=== PATIENT | female | born 1970 | race Asian ===

== ENCOUNTER 2016-03-21 12:52 | Outpatient (CLI) | payer OTHER | END 2016-03-21 20:13 | disposition home or self-care (01) | LOC: MAMMO 12:52 | DX: Z12.31 Encounter for screening mammogram for malignant neoplasm of breast (principal) | CPT/HCPCS: G0202-TC ==

== ENCOUNTER → 2020-04-25 | Outpatient (CLI) | payer BC, OTHER | LOC: INF 08:30 | PROVIDERS: ATTEND Internal Medicine | DX: Z23 Encounter for immunization (principal) | CPT/HCPCS: 96372 ==

== ENCOUNTER 2020-05-19 12:36 | Outpatient (CLI) | payer BC, OTHER | END 2020-05-19 23:59 | disposition home or self-care (01) | LOC: INF 12:36 | PROVIDERS: ATTEND Internal Medicine | DX: Z23 Encounter for immunization (principal) | CPT/HCPCS: 96372 ==